=== PATIENT | female | born 1995 | race Caucasian/White ===

== ENCOUNTER 2018-01-30 16:02 | Emergency (ER) | payer OTHER ==
[~2018-01-30] VITALS: Ht 167.6 cm; Wt 63.5 kg
--- NOTE | 2018-01-30 16:36 | PHYS DOC ---
Past History Past Medical History: No Pertinent History Adult General Chief Complaint Chief Complaint: KNEE INJURY HPI HPI 22-year-old female patient states she was running during PT as a [employer] morning and felt pain in her left knee a constant pain that getting worse with walking and activity. Patient states she took ibuprofen at 1400 with partial improvement of her pain. Patient denies focal neuro deficit and other injuries and history of knee problem. Review of Systems Review of Systems Constitutional: Denies fever or chills [] Eyes: Denies change in visual acuity, redness, or eye pain [] HENT: Denies nasal congestion or sore throat [] Respiratory: Denies cough or shortness of breath [] Cardiovascular: No additional information not addressed in HPI [] GI: Denies abdominal pain, nausea, vomiting, bloody stools or diarrhea [] : Denies dysuria or hematuria [] Musculoskeletal: Denies back pain , reports joint pain [] Integument: Denies rash or skin lesions [] Neurologic: Denies headache, focal weakness or sensory changes [] Endocrine: Denies polyuria or polydipsia [] All other systems were reviewed and found to be within normal limits, except as documented in this note. Physical Exam Physical Exam Constitutional: Well developed, well nourished, no acute distress, non-toxic appearance. [] HENT: Normocephalic, atraumatic Eyes: PERRLA, EOMI, conjunctiva normal, no discharge. [] Neck: Normal range of motion, no tenderness, supple, no stridor. [] Cardiovascular:Heart rate regular rhythm, no murmur [] Lungs & Thorax: Bilateral breath sounds clear to auscultation [] Back: No tenderness, no CVA tenderness. [] Extremities: Left knee without deformity or edema or ecchymosis, painful range of motion, no cyanosis, no clubbing, no edema. [] Neurologic: Alert and oriented X 3, normal motor function, normal sensory function, no focal deficits noted. [] Psychologic: Affect normal, judgement normal, mood normal. [] EKG EKG [] Radiology/Procedures Radiology/Procedures [][address] [address] IMAGING REPORT Signed PATIENT: NITO AL ACCOUNT: [id number] : 1995 LOCATION: ER AGE: 22 SEX: F EXAM STATUS: REG ER ORD. PHYSICIAN: FRANCISCO KO MD REASON: pain after running PROCEDURE: KNEE LEFT 4V History: Pain following long run. Comparison: None. Findings: AP, lateral, oblique, and merchant views of the left knee. No joint effusion is identified. No acute fracture or dislocation is seen. Impression: No acute osseous abnormality identified. Electronically signed by: Manolo Knowles MD (01/30/2018 5:03 PM) [facility] DICTATED AND SIGNED BY: MANOLO KNOWLES MD DATE: 01/30/18 1705 CC: FRANCISCO KO MD; PCP,NO ~ Course & Med Decision Making Course & Med Decision Making Pertinent Imaging studies reviewed. (See chart for details) Evaluation of patient in ER showed 22-year-old male patient with left knee pain after running. Patient had unremarkable exam and x-ray. Plan to apply Jose wrap and discharge patient home with prescription of Naprosyn and instruction to follow up with primary care physician. [] Dragon Disclaimer Dragon Disclaimer This electronic medical record was generated, in whole or in part, using a voice recognition dictation system. Departure Departure: Impression: Primary Impression: Left knee sprain Disposition: HOME, SELF-CARE (at 1713) Condition: STABLE Referrals: PCP,NO (PCP) Patient Instructions: Knee Sprain Additional Instructions: Apply ice on the affected area Follow-up with your primary care physician in 3-5 days Return to ER if not getting better Scripts Naproxen (NAPROSYN) 500 Mg Tablet 1 TAB PO BID, #20 TAB Prov: FRANCISCO KO MD 01/30/18 FRANCISCO KO MD Jan 30, 2018 16:36
--- NOTE | 2018-01-30 17:06 | RAD ---
History: Pain following long run. Comparison: None. Findings: AP, lateral, oblique, and merchant views of the left knee. No joint effusion is identified. No acute fracture or dislocation is seen. Impression: No acute osseous abnormality identified. Electronically signed by: Manolo Knowles MD (01/30/2018 5:03 PM) [facility]
[2018-01-30] MEDS ORDERED: NAPR-683 PO (17:14)
[2018-01-30 17:15] VITALS: BP 114/73
== END 2018-01-30 17:15 | disposition home or self-care (01) ==
LOC: ER 16:14
DX: S83.92XA Sprain of unspecified site of left knee, initial encounter (principal); X50.3XXA Overexertion from repetitive movements, initial encounter; Y93.02 Activity, running; Y99.8 Other external cause status; Y92.89 Other specified places as the place of occurrence of the external cause
CPT/HCPCS: 73564; 99284